=== PATIENT | female | born 1945 | race Caucasian/White ===

== ENCOUNTER 2018-02-06 15:58 | Inpatient (IN) ==
[2018-02-06] MEDS ORDERED: LIDOCAINE 1% 20 ML VIAL ONE (16:20)
[2018-02-06] MEDS ORDERED: MIDAZOLAM 2 MG/2 ML VIAL ONE (16:21)
[2018-02-06] MEDS ORDERED: fentaNYL 100 MCG/2 ML VIAL ONE (16:21)
[2018-02-06] MEDS ORDERED: HEPARIN 5,000 UNIT/1 ML VIAL ONE (16:35)
[2018-02-06] MEDS ORDERED: TIROFIBAN 5,000 MCG/100 ML PREMIX IV ONE (16:39)
[2018-02-06] MEDS ORDERED: METOPROLOL TARTRATE 5 MG/5 ML VIAL IV ONE ×2 (16:43→16:52)
[2018-02-06] MEDS ORDERED: NIFEdipine 10 MG CAPSULE PO ONE (16:53)
[2018-02-06] MEDS ORDERED: TICAGRELOR 90 MG TABLET ONE (17:00)
[2018-02-06] MEDS ORDERED: ACETAMINOPHEN 325 MG TABLET PO PRN (18:19)
[2018-02-06] MEDS ORDERED: ZALEPLON 5 MG CAPSULE PO PRN (18:19)
[2018-02-06] MEDS ORDERED: MAGNESIUM SULF RIDER 2 GM in PREMIX 1 EACH IV PRN (18:19)
[2018-02-06] MEDS ORDERED: DEXTROSE 50% 25 GM/50 ML VIAL IV PRN (18:19)
[2018-02-06] MEDS ORDERED: LACTULOSE 20 GM/30 ML UDCUP PO PRN (18:19)
[2018-02-06] MEDS ORDERED: ALBUTEROL 2.5 MG/3 ML NEB RESP TX PRN (18:19)
[2018-02-06] MEDS ORDERED: GLUCAGON 1 MG VIAL IM PRN (18:19)
[2018-02-06] MEDS ORDERED: OXYMETAZOLINE 0.05% NASAL SPRAY 15 ML BOTTLE BOTH NARES PRN (18:27)
[2018-02-06] MEDS: SODIUM CHLORIDE 0.9% 1,000 ML IV SCH (18:34)
[2018-02-06] MEDS: CARVEDILOL 3.125 MG TABLET PO SCH (18:34)
[2018-02-06] MEDS ORDERED: SODIUM CHLORIDE 0.9% 500 ML IV ONE (18:41)
[2018-02-06 19:24] LABS: Basophils % 0.4 % (0.0-0.8); Eosinophils # 0.1 10*3/uL (0.0-0.87); Eosinophils % 1.2 % (0.00-10.9); Hemoglobin 11.1 GM/DL (12.0-16.0); Immature Granulocytes % 0.8 %; Immature Granulocytes Absolute 0.08 #; Lymphocytes # 2.8 10*3/uL (1.4-4.0); Lymphocytes % 28.5 % (21.3-54.2); Mean Corpuscular HGB Conc 33.6 GM/DL (32-36); Mean Corpuscular Hemoglobin 31 PG (27-34); Mean Platelet Volume 11.1 FL (9.6-12.0); Monocytes # 0.6 10*3/uL (0.11-0.8); Monocytes % 6.6 % (1.7-12.7); Neutrophils % 62.5 % (38.7-73.9); Platelet Count 256 T/CUMM (130-400); Red Blood Count 3.55 MC/CUMM (3.8-5.5); Red Cell Distribution Width 12.2 % (9.3-17.3); White Blood Count 9.7 T/CUMM (4-12)
[2018-02-06] MEDS ORDERED: MORPHINE 4 MG/1 ML VIAL IV PRN (20:46)
[2018-02-06] MEDS: clonazePAM 0.5 MG TABLET PO PRN (21:01)
[2018-02-06] MEDS: GABAPENTIN 100 MG CAPSULE PO SCH (21:01)
[2018-02-06] MEDS: TICAGRELOR 90 MG TABLET PO SCH (21:01)
[2018-02-06] MEDS: INSULIN LISPRO 100 UNIT/ML SUBCUT SCH (21:11)
[2018-02-06 23:21] LABS: Troponin I 8.12 NG/ML (0.00-0.045)
[2018-02-06 23:26] LABS: Apearance,Urine CLEAR (Clear); Bilirubin,Urine Negative (Negative); Blood, Urine Negative (Negative); Glucose,Urine (UA) 50 mg/dL (Negative); Ketones,Urine Negative (Negative); Nitrite,Urine Negative (Negative); Protein,Urine Negative; RBC,Urine 1 /HPF (0-4); Squamous Epithelial Cell,Urine Occasional /HPF (0-10); Urine Color Straw (Yellow); Urine Specific Gravity 1.034 (1.001-1.035); Urine Urobilinogen < 2.0 EU/DL (0.2-1.0); WBC,Urine <1 /HPF (0-6)
[2018-02-06 23:48] LABS: Albumin 4.1 G/DL (3.4-5.0); Bilirubin,Total 0.7 MG/DL (0.2-1.0); Calcium 8.7 MG/DL (8.5-10.1); Osmolality,Calculated 275.1 MOS/KG (273-304); Potassium 4.1 MMOL/L (3.5-5.1); Risk Ratio 3.09; Total Protein 7.3 G/DL (6.4-8.3); VLDL CHOLESTEROL 69.2 MG/DL
[2018-02-07] MEDS: MAGNESIUM SULF RIDER 4 GM in PREMIX 1 EACH IV PRN (00:30)
[2018-02-07] MEDS: CARVEDILOL 3.125 MG TABLET PO SCH ×4 (00:31→18:20)
[2018-02-07] MEDS: SODIUM CHLORIDE 0.9% 1,000 ML IV SCH (01:11)
[2018-02-07 06:28] LABS: Basophils % 0.2 % (0.0-0.8); Eosinophils # 0.2 10*3/uL (0.0-0.87); Eosinophils % 1.9 % (0.00-10.9); Hematocrit 33.4 VOL% (35.7-47.0); Hemoglobin 11.5 GM/DL (12.0-16.0); Immature Granulocytes % 0.8 %; Immature Granulocytes Absolute 0.07 #; Lymphocytes # 2.1 10*3/uL (1.4-4.0); Lymphocytes % 25.1 % (21.3-54.2); Mean Corpuscular HGB Conc 34.4 GM/DL (32-36); Mean Corpuscular Hemoglobin 31 PG (27-34); Mean Corpuscular Volume 91.3 FL (87-102); Mean Platelet Volume 10.8 FL (9.6-12.0); Monocytes # 0.7 10*3/uL (0.11-0.8); Monocytes % 8.8 % (1.7-12.7); Neutrophils # 5.2 10*3/uL (1.4-7.4); Neutrophils % 63.2 % (38.7-73.9); Platelet Count 213 T/CUMM (130-400); Red Blood Count 3.66 MC/CUMM (3.8-5.5); Red Cell Distribution Width 12.4 % (9.3-17.3); White Blood Count 8.3 T/CUMM (4-12)
[2018-02-07] MEDS: LEVOTHYROXINE 75 MCG TABLET PO SCH (06:34)
[2018-02-07 06:49] LABS: CKMB % 8.5 %
[2018-02-07 06:50] LABS: Troponin I 3.89 NG/ML (0.00-0.045)
[2018-02-07 06:56] LABS: Albumin 3.4 G/DL (3.4-5.0); Bilirubin,Total 0.6 MG/DL (0.2-1.0); Calcium 7.9 MG/DL (8.5-10.1); Osmolality,Calculated 279.7 MOS/KG (273-304); Potassium 4.3 MMOL/L (3.5-5.1); Thyroid Stimulating Hormone 4.73 uIU/ml (0.358-3.74); Total Protein 6.2 G/DL (6.4-8.3)
[2018-02-07] MEDS: INSULIN LISPRO 100 UNIT/ML SUBCUT SCH ×4 (07:15→20:50)
[2018-02-07] MEDS ORDERED: LISINOPRIL/HCTZ 20-12.5 MG TABLET PO SCH (09:00)
[2018-02-07] MEDS: PANTOPRAZOLE 40 MG TABLET PO SCH (09:03)
[2018-02-07] MEDS: ALPRAZolam 0.5 MG TABLET PO SCH (09:03)
[2018-02-07] MEDS: VENLAFAXINE 75 MG TABLET PO SCH ×2 (09:03→09:16)
[2018-02-07] MEDS: ASPIRIN CHEW 81 MG TABLET PO SCH (09:03)
[2018-02-07] MEDS: TICAGRELOR 90 MG TABLET PO SCH ×2 (09:03→20:50)
[2018-02-07] MEDS: ROSUVASTATIN 20 MG TABLET PO SCH (09:03)
[2018-02-07] MEDS: GABAPENTIN 100 MG CAPSULE PO SCH (20:50)
[2018-02-07] MEDS: clonazePAM 0.5 MG TABLET PO PRN (21:13)
[2018-02-07] MEDS ORDERED: hydrALAZINE 20 MG/1 ML VIAL IV PRN (21:13)
[2018-02-08] MEDS: CARVEDILOL 3.125 MG TABLET PO SCH ×3 (00:06→15:10)
[2018-02-08 06:01] LABS: Basophils % 0.2 % (0.0-0.8); Eosinophils # 0.3 10*3/uL (0.0-0.87); Eosinophils % 3.1 % (0.00-10.9); Hemoglobin 11.7 GM/DL (12.0-16.0); Immature Granulocytes % 0.6 %; Immature Granulocytes Absolute 0.05 #; Lymphocytes # 2.5 10*3/uL (1.4-4.0); Mean Corpuscular HGB Conc 34.4 GM/DL (32-36); Mean Corpuscular Hemoglobin 31 PG (27-34); Mean Corpuscular Volume 91.2 FL (87-102); Monocytes # 0.7 10*3/uL (0.11-0.8); Monocytes % 8.3 % (1.7-12.7); Neutrophils # 4.7 10*3/uL (1.4-7.4); Neutrophils % 56.8 % (38.7-73.9); Platelet Count 197 T/CUMM (130-400); Red Blood Count 3.73 MC/CUMM (3.8-5.5); Red Cell Distribution Width 12.3 % (9.3-17.3); White Blood Count 8.2 T/CUMM (4-12)
[2018-02-08 06:20] LABS: Calcium 8.5 MG/DL (8.5-10.1); Osmolality,Calculated 278.8 MOS/KG (273-304); Potassium 4.2 MMOL/L (3.5-5.1)
[2018-02-08 06:25] LABS: Troponin I 1.58 NG/ML (0.00-0.045)
[2018-02-08] MEDS: LEVOTHYROXINE 75 MCG TABLET PO SCH (07:08)
[2018-02-08] MEDS: MAGNESIUM SULF RIDER 4 GM in PREMIX 1 EACH IV PRN (07:08)
[2018-02-08] MEDS: TICAGRELOR 90 MG TABLET PO SCH (08:09)
[2018-02-08] MEDS: INSULIN LISPRO 100 UNIT/ML SUBCUT SCH ×2 (08:09→15:11)
[2018-02-08] MEDS: ASPIRIN CHEW 81 MG TABLET PO SCH (08:09)
[2018-02-08] MEDS: VENLAFAXINE 75 MG TABLET PO SCH (08:09)
[2018-02-08] MEDS: PANTOPRAZOLE 40 MG TABLET PO SCH (08:09)
[2018-02-08] MEDS: ROSUVASTATIN 20 MG TABLET PO SCH (08:09)
[2018-02-08] MEDS: ALPRAZolam 0.5 MG TABLET PO SCH (08:09)
[2018-02-08] MEDS ORDERED: MAGNESIUM CHLORIDE 64 MG TABLET PO ONE (15:08)
[2018-02-08] MEDS ORDERED: LISINOPRIL 2.5 MG TABLET PO ONE (15:12)
[2018-02-08] MEDS ORDERED: LISINOPRIL 2.5 MG TABLET PO SCH (15:30)
[2018-02-08 15:32] VITALS: BP 131/78
== END 2018-02-08 15:40 | disposition home or self-care (01) | DRG 247 ==
LOC: N.CL 15:58 → N.CC 16:06
PROVIDERS: ADMIT Internal Medicine Cardiovascular Disease; ATTEND Internal Medicine Cardiovascular Disease
PROC: CLCCHCL (ICD-10-PCS; 2018-02-06 16:45)